=== PATIENT | male | born 1935 | race Caucasian/White ===

== ENCOUNTER → 2016-10-21 | Outpatient (CLI) | payer OTHER, MEDICARE | LOC: BMCIMAGING 10:47 | PROVIDERS: ATTEND Internal Medicine | DX: M25.552 Pain in left hip (principal) ==

== ENCOUNTER 2017-06-22 19:00 | Inpatient (IN) | payer MEDICARE, OTHER ==
--- NOTE | 2017-06-22 19:14 | EDPHY ---
H & P HPI/ROS: CHIEF COMPLAINT: Dizziness HISTORY OF PRESENT ILLNESS: This patient is an 82 y/o male with history of seizures arriving via EMS complaining of dizziness. This evening, he was lying on the couch watching TV while his was cooking dinner and noticed the TV table was off-kilter and attempted to stand to fix it. He lost his balance and fell back against the couch. His tried to help him up, but he was unable to stand, and she states it seemed both his legs were too weak to support him. The patient admits to this though he initially denied weakness. Tegretol was increased 6 months ago because of petite mal seizures. Tegretol dosing is 400 mg in the morning and 600 mg in the evening. The patient denies having similar symptoms in the past. He denies headache, weakness, vision difficulties, hearing changes, swallowing difficulties, chest pain, shortness of breath, nausea. Currently, he denies dizziness or weakness. He is a difficult historian, and has history of dementia. His states he seems more confused that usual. She denies history of stroke. Pt has remote history of IN s/p stent placement. No recent illness, cough, cold, or fever. HPI obtained partially from patient's at bedside as patient is a difficult historian. REVIEW OF SYSTEMS: A 10 point review of systems was performed and is negative with the exception of the elements mentioned in the history of present illness. Past Medical/Surgical History: Partial complex seizures (Carbamazepine) CAD Remote history of IN s/p stent placement Hyperlipidemia BPH Cholecystectomy Social History: . at bedside. Former smoker. Lives in [place]. Smoking Status: Former smoker Physical Exam: General Appearance: Alert, pleasant Head: Small hematoma to L periorbital area. Eyes: Horizontal nystagmus. Pupils equal and round, no conjunctival pallor or injection ENT, Mouth: Mucous membranes moist Neck: Normal inspection Respiratory: Lungs are clear to auscultation Cardiovascular: Regular rate and rhythm Gastrointestinal: Abdomen is soft and non-tender Neurological: A&O, nonfocal exam Skin: Abrasion L elbow. Warm and dry, no rash Extremities: Nontender, no pedal edema Psychiatric: Mood and affect normal Constitutional: Initial Vital Signs Temperature (C) 37.0 C 06/22/17 20:08 Heart Rate 84 06/22/17 20:08 Respiratory Rate 16 06/22/17 20:08 Blood Pressure 134/81 H 06/22/17 20:08 O2 Sat (%) 92 06/22/17 20:08 O2 Delivery Mode Room Air Allergies/Adverse Reactions: clopidogrel bisulfate [From Plavix] Allergy (Mild, Verified 06/22/17 20:07) Rash Home Medications: Medication Instructions Recorded Aspirin [Aspirin 81mg (*)] 81 mg PO DAILY 12/19/11 carBAMazepine [TEGretol (*)] 400 mg PO BID 12/19/11 Medical Decision Making - Diagnostics Imaging Results: Imaging Impressions Chest X-Ray 06/22/17 19:16 Impression: Chronic versus recurrent left lower lobe consolidation. Head CT 06/22/17 19:17 Impression: Stable cerebral atrophy. Nothing acute detected. Results called to Dr. Montoya at 8:03 PM General information for patients regarding this examination can be found at [email or web address]. If you have questions or comments about this report, please contact me at (hospital) or [phone] (cell). Imaging: Discussed imaging studies w/ call center analyst Radiologist ED Course/Re-evaluation: 19:08 Took EMS report at bedside. 82 y/o male presents following an episode of dizziness and weakness and resultant fall. Exam reveals horizontal nystagmus. Plan for EKG, chest x-ray, CT head, labs including CBC, chemistries, troponin, Carbamazepine levels. 20:[address] Dotson, radiologist. CT head negative for acute processes. I was notified at this time as well that the patient's Carbamazepine level is greater than 20. Tegretol toxicity explains this patient's symptoms. He has generalized weakness, some cognitive impairment and nystagmus on exam. EKG reveals sinus rhythm with a left bundle branch block, similar to prior EKG dated 08/21/2014. 20:[address] Card, hospitalist. He accepts admission for Tegretol toxicity. Differential Diagnosis: Altered mental status including but not limited to hypoglycemia, infectious process, electrolyte abnormality, head injury and intoxicants. - Data Points Laboratory Results: Laboratory Results 06/22/17 19:11 06/22/17 19:11 06/22/17 06/22/17 19:11 19:11 WBC 7.25 10^3/uL 10^3/uL (3.80-9.50) RBC 4.24 10^6/uL L 10^6/uL (4.40-6.38) Hgb 14.4 g/dL g/dL (13.7-17.5) Hct 40.4 % % (40.0-51.0) MCV 95.3 fL fL (81.5-99.8) MCH 34.0 pg pg (27.9-34.1) MCHC 35.6 g/dL g/dL (32.4-36.7) RDW 12.8 % % (11.5-15.2) Plt Count 259 10^3/uL 10^3/uL (150-400) MPV 8.9 fL fL (8.7-11.7) Neut % (Auto) 62.3 % % (39.3-74.2) Lymph % (Auto) 23.6 % % (15.0-45.0) Door % (Auto) 7.0 % % (4.5-13.0) Eos % (Auto) 5.5 % % (0.6-7.6) Baso % (Auto) 1.2 % % (0.3-1.7) Nucleat RBC Rel Count 0.0 % % (0.0-0.2) Absolute Neuts (auto) 4.51 10^3/uL 10^3/uL (1.70-6.50) Absolute Lymphs (auto) 1.71 10^3/uL 10^3/uL (1.00-3.00) Absolute Monos (auto) 0.51 10^3/uL 10^3/uL (0.30-0.80) Absolute Eos (auto) 0.40 10^3/uL 10^3/uL (0.03-0.40) Absolute Basos (auto) 0.09 10^3/uL 10^3/uL (0.02-0.10) Absolute Nucleated RBC 0.00 10^3/uL 10^3/uL (0-0.01) Immature Gran % 0.4 % % (0.0-1.1) Immature Gran # 0.03 10^3/uL 10^3/uL (0.00-0.10) Platelet Estimate Pending Sodium 141 mEq/L mEq/L (135-145) Potassium 3.6 mEq/L mEq/L (3.5-5.2) Chloride 107 mEq/L mEq/L (97-110) Carbon Dioxide 20 mEq/l L mEq/l (22-31) Anion Gap 14 mEq/L mEq/L (8-16) BUN 19 mg/dL mg/dL (7-23) Creatinine 1.0 mg/dL mg/dL (0.7-1.3) Estimated GFR > 60 Glucose 123 mg/dL H mg/dL (70-100) Calcium 8.5 mg/dL mg/dL (8.5-10.4) Troponin I < 0.012 ng/mL ng/mL (0.000-0.034) Carbamazepine > 20.0 ug/mL H* ug/mL (4.0-12.0) Departure - Departure Disposition: [facility] Inpatient Acute Clinical Impression: Tegretol toxicity Qualifiers: Encounter type: initial encounter Injury intent: accidental or unintentional Qualified Code(s): T42.1X1A - Poisoning by iminostilbenes, accidental ( unintentional), initial encounter Condition: Good Report Scribed for: Bri Montoya Report Scribed by: Teena Talbert Date of Report: 06/22/17 Time of Report: 19:41 Physician Review and Approval Statement: 06/22/17 19:41 Portions of this note were transcribed by a quality engineer medical device. I personally performed a history, physical exam, medical decision making, and confirmed accuracy of information the transcribed note.
[2017-06-22] MEDS ORDERED: MECLIZINE HCL 25 MG TAB PO ONE (19:17)
[2017-06-22 19:22] LABS: PLATELET COUNT 259 10^3/uL (150-400)
--- NOTE | 2017-06-22 19:48 | CPEKG ---
Heart Rate: 85 RR Interval: 706 P-R Interval: 264 QRSD Interval: 130 QT Interval: 396 QTC Interval: 471 P Troy: 78 QRS Troy: -21 T Wave Troy: 94 EKG Severity - ABNORMAL ECG - EKG Impression: SINUS RHYTHM EKG Impression: FIRST DEGREE AV BLOCK EKG Impression: LEFT BUNDLE BRANCH BLOCK Electronically Signed By: Guido Deng 23-Jun-2017 10:46:27
[2017-06-22] MEDS ORDERED: NS 500 ML IV ONE (20:27)
[2017-06-22] MEDS ORDERED: ACETAMINOPHEN 325 MG TAB PO PRN (23:27)
[2017-06-22] MEDS ORDERED: ONDANSETRON 4 MG/2 ML VIAL IVP PRN (23:27)
[2017-06-22] MEDS: NS 1,000 ML IV SCH (23:40)
--- NOTE | 2017-06-23 00:27 | PDGENHP ---
History and Physical - Chief Complaint confusion, weakness - History of Present Illness Source-patient is not able to provide a significant amount of history. He presented with confusion. is not at bedside during time of interview. EMR was reviewed. Case discussed with ED provider initial patient's RN. HPI - very pleasant 82-year-old gentleman with past medical history listed as some underlying dementia, seizure disorder (partial complex) on Tegretol, history CVA, history CAD with WI and stents, and HLD, BPH who presents to the emergency department today with the increasing confusion generalized weakness and some dizziness. Patient does have a history of partial complex seizures for which she has been treated with Tegretol reported 400 in the morning and 600 at nighttime. Patient's home medications were up titrated approximately 6 months ago. It is unknown if patient has had any recent seizures. Unknown if he has had any falls with LOC or increasing seizures however he does have some contusions to his adventism and arms and various stages of healing. At time of my interview, patient is reporting that he just feels tired. He otherwise does not know why he is in the hospital or that he is in a hospital. He does recall that he is in room 203 and the month but not the year. History Information - Allergies/Home Medication List Allergies/Adverse Reactions: clopidogrel bisulfate [From Plavix] Allergy (Mild, Verified 06/22/17 20:07) Rash Home Medications: Aspirin [Aspirin 81mg (*)] 81 mg PO DAILY 12/19/11 [Last Taken 06/22/17] carBAMazepine [TEGretol (*)] 400 mg PO BID 12/19/11 [Last Taken 06/22/17] I have personally reviewed and updated: family history, medical history, social history, surgical history - Past Medical History Additional medical history: Partial complex seizure disorder, dementia, CVA, WI with history of stents, HLD, BPH - Surgical History Additional surgical history: Cholecystectomy, cardiac cath with stenting - Family History Additional family history: Unable to obtain secondary to patient's confusion - Social History Smoking Status: Former smoker Additional social history: Patient is lives with his . Cor - unable to verify at this time will be full. Review of Systems Review of Systems: ROS: 10pt was reviewed & negative except for what was stated in HPI & below Physical Exam Physical Exam: Selected Entries 06/22/17 20:08 Blood Pressure Automatic Method Heart Rate 84 Respiratory 16 Rate O2 Sat (%) 92 Temperature (C) 37.0 C Blood Pressure 134/81 H Mean Arterial 98 Pressure (MAP) O2 Delivery Room Air Mode Temperature Oral Source Temp Pulse Resp BP Pulse Ox 36.8 C 79 16 153/88 H 91 L 06/22/17 23:44 06/22/17 23:44 06/22/17 23:44 06/22/17 23:44 06/22/17 23:44 Constitutional: no apparent distress, chronically ill appearing, cachectic Eyes: PERRL, anicteric sclera, EOMI, No scleral injection Ears, Nose, Mouth, Throat: hearing normal, no oral mucosal ulcers, poor dentition, dry mucous membranes Cardiovascular: regular rate and rhythym, no murmur, rub, or gallop, systolic murmur, No edema Peripheral Pulses: 1+: dorsalis-pedis (R), dorsalis-pedis (L) Respiratory: no respiratory distress, no rales or rhonchi, clear to auscultation , reduced air movement (Bibasilar) Gastrointestinal: normoactive bowel sounds, soft, non-tender abdomen, no palpable masses, No tenderness, No guarding Genitourinary: no bladder tenderness, No bravo in urethra Skin: abrasion (Left adventism bilateral forearms), other (Bruising to bilateral forearms and left adventism) Musculoskeletal: abnormal gait, generalized weakness, No joint tenderness Neurologic: weakness (Generalized), CN II-XII Intact, other, No AAOx3, No facial droop Psychiatric: not anxious, poor memory, other (Patient oriented to self, room number but not location, month but not year), No anxious, No depressed Lymph, Heme, Immunologic: other (Bruising to extremities and left adventism) Lab Data & Imaging Review 06/23/17 03:09 06/23/17 03:09 WBC 7.25 10^3/uL (3.80-9.50) 06/22/17 19:11 RBC 4.24 10^6/uL (4.40-6.38) L 06/22/17 19:11 Hgb 14.4 g/dL (13.7-17.5) 06/22/17 19:11 Hct 40.4 % (40.0-51.0) 06/22/17 19:11 MCV 95.3 fL (81.5-99.8) 06/22/17 19:11 MCH 34.0 pg (27.9-34.1) 06/22/17 19:11 MCHC 35.6 g/dL (32.4-36.7) 06/22/17 19:11 RDW 12.8 % (11.5-15.2) 06/22/17 19:11 Plt Count 259 10^3/uL (150-400) 06/22/17 19:11 MPV 8.9 fL (8.7-11.7) 06/22/17 19:11 Neut % (Auto) 62.3 % (39.3-74.2) 06/22/17:11 Lymph % (Auto) 23.6 % (15.0-45.0) 06/22/17:11 Ripley % (Auto) 7.0 % (4.5-13.0) 06/22/17:11 Eos % (Auto) 5.5 % (0.6-7.6) 06/22/17 19:11 Baso % (Auto) 1.2 % (0.3-1.7) 06/22/17 19:11 Nucleat RBC Rel Count 0.0 % (0.0-0.2) 06/22/17:11 Absolute Neuts (auto) 4.51 10^3/uL (1.70-6.50) 06/22/17 19:11 Absolute Lymphs (auto) 1.71 10^3/uL (1.00-3.00) 06/22/17 19:11 Absolute Monos (auto) 0.51 10^3/uL (0.30-0.80) 06/22/17 19:11 Absolute Eos (auto) 0.40 10^3/uL (0.03-0.40) 06/22/17 19:11 Absolute Basos (auto) 0.09 10^3/uL (0.02-0.10) 06/22/17 19:11 Absolute Nucleated RBC 0.00 10^3/uL (0-0.01) 06/22/17:11 Immature Gran % 0.4 % (0.0-1.1) 02/15/18 19:11 Immature Gran # 0.03 10^3/uL (0.00-0.10) 06/22/17 19:11 RBC/WBC/PLT Morphology NORMAL (NORMAL) 06/22/17 19:11 Platelet Estimate ADEQUATE (ADEQ) 06/22/17 19:11 Sodium 141 mEq/L (135-145) 06/22/17 19:11 Potassium 3.6 mEq/L (3.5-5.2) 06/22/17 19:11 Chloride 107 mEq/L (97-110) 06/22/17 19:11 Carbon Dioxide 20 mEq/l (22-31) L 06/22/17 19:11 Anion Gap 14 mEq/L (8-16) 06/22/17 19:11 BUN 19 mg/dL (7-23) 06/22/17 19:11 Creatinine 1.0 mg/dL (0.7-1.3) 06/22/17 19:11 Estimated GFR > 60 06/22/17 19:11 Glucose 123 mg/dL (70-100) H 06/22/17 19:11 Calcium 8.5 mg/dL (8.5-10.4) 06/22/17 19:11 Troponin I < 0.012 ng/mL (0.000-0.034) 06/22/17 19:11 Carbamazepine > 20.0 ug/mL (4.0-12.0) H* 06/22/17 19:11 Imaging Review: CT Head Without Contrast, 7:49 PM History: Dizziness. Technique: Noncontrast images through the head. Soft tissue and bone window evaluation is performed. Dose reduction techniques were utilized. Comparison: August 21, 2014 Findings: There is stable age-appropriate cerebral atrophy. There is no evidence for hemorrhage, mass lesion, acute infarction, intracranial edema, hydrocephalus or abnormal intracranial calcification. No subarachnoid, epidural or subdural blood is identified. There is no midline shift. The ambient cistern is patent. Bone window evaluation reveals normally aerated paranasal and mastoid sinuses. There is no evidence of skull fracture or pneumocephalus. The paranasal and mastoid sinuses and both middle ears are normally aerated. The patient has had bilateral scleral banding procedures. Impression: Stable cerebral atrophy. Nothing acute detected. Chest, AP and Lateral, 18:51 History: Dyspnea, altered mental status Comparison: August 21, 2014 Findings: Inspiratory phase is not as robust as it was previously. It is difficult to exclude chronic or recurrent left basilar infiltrate or atelectasis. Heart size and pulmonary vascularity are normal. There is no adenopathy or mass lesion. There is no pleural effusion or pneumothorax. Bones are unremarkable for age. Impression: Chronic versus recurrent left lower lobe consolidation. Visualized and Interpreted EKG results: Yes EKG additional interpertation: NSR 1st AV block, LBBB, QTc 471 Assessment & Plan Assessment: Tegretol toxicity (Acute) - patient will receive IV fluid hydration. His Tegretol will be held. Patient appears to be mentating slightly improved since his arrival to the floor per RN he is more interactive and answering questions appropriately. Patient's cognitive baseline is unknown. Will have to further evaluate once patient's is available at bedside. Acute metabolic encephalopathy - secondary to above. Continue IV fluid hydration. Again appears to be slightly improved even since arrival from the ED. History of dementia - supportive care redirection p.r.n. patient currently is not agitated Seizure disorder - holding Tegretol see above Anemia - patient without any evidence of active bleeding. Likely some anemia of chronic disease. Will monitor - CAD - patient currently only on aspirin. HLD - no home meds listed. BPH - will monitor patient's output closely PVRs p.r.n.. FEN - IV fluids as noted above. Electrolytes will be monitored and replaced if needed. Advance diet as tolerated. PPX - SCDs. Lovenox. COR - unable to verify patient's code status no advanced directive left with the patient. Will leave the patient has a full code at this time and clarify with patient's in the morning. Dispo - patient admitted inpatient status on PCU. Patient requires close monitoring given high levels of Tegretol and acute encephalopathy. Anticipate greater than 2 midnight stay.
[2017-06-23 04:16] LABS: PLATELET COUNT 202 10^3/uL (150-400)
--- NOTE | 2017-06-23 09:57 | PDMN ---
Medical Necessity Medical necessity: Pt meets IP criteria per MD; est los >2 mn for eval/tx of acute metabolic encephalopathy secondary to Tegretol toxicity; given high levels of Tegretol & acute encephalopathy, admit for close monitoring, supportive care, IVFs & med management; hx dementia, seizure disorder, anemia, CVA, CAD w/CT & stents; per H&P & order 06/22/17
--- NOTE | 2017-06-23 10:09 | ASMTCMCOM ---
CM Note CM Note Notes: Patient admitted for confusion and weakness and found to have Tegretol toxicity. He takes Tegretol for partial complex seizures, and his dose was recently up-titrated. His mentation is improving, but he is still confused and unsteady on his feet. Patient lives independently with his Ashleigh. We will order PT/OT to eval. Discharge needs TBD. Case Management will follow. Date Signed: 06/23/2017 10:08 AM Electronically Signed By:Farzaneh Tsang RN
[2017-06-23] MEDS: NS 1,000 ML IV SCH ×2 (11:54→21:39)
--- NOTE | 2017-06-23 12:27 | HOSPPROG ---
Hospitalist Progress Note Assessment/Plan: 82-year-old male admitted with confusion and found to have an elevated Tegretol level consistent with Tegretol overdose. Patient is new to me today -Tegretol overdose secondary to excessive therapeutic dosing. Approximately 6 months ago the patient's dose of Tegretol was increased from 400 mg twice daily to 400 in morning and 600 in the evening. In the last 48 hr is noted increased confusion and weakness without a clear history of dizziness and no history of syncope. Tegretol on admission was greater than 20. Post admission and this a.m. The reports he is improving. ECG shows 1st degree block and a left bundle branch block but the QTC interval is normal. Plan: With old tegretol and discuss dosing with his PCP for neurology Dr. Shane Gonzalez Continue to monitor for prolonged QT interval and ventricular dysrhythmia. -dementia: He is more confused with the Tegretol overdose but is nearing his baseline according to the . He and his live together in a house here in [place] and have function well. The at this time declines home assistance. -seizure disorder: Patient has a partial complex seizure disorder which did improve with the increased dose of Tegretol 6 months ago. Excess Tegretol can cause seizures and he has not had an increase in his seizure disorder recently. Plan: Discuss Tegretol dosing with Dr. Shane Gonzalez -CAD, HLP, BPH, chronic problems and stable and currently being treated. -disposition: This time the and patient declined home health services or sniff placement. We will plan on a return to home possibly with home health services. Date of disposition unknown Case was discussed with Dr. Giovany Saldivar on rounds in the PCU. Time: 45 min Subjective: Is alert oriented and interactive and more interactive according to the . No complaints. Objective: Vital Signs Temp Pulse Resp BP Pulse Ox 36.4 C 57 L 18 112/65 96 06/23/17 07:36 06/23/17 07:36 06/23/17 07:36 06/23/17 07:36 06/23/17 07:36 Laboratory Results 06/23/17 03:09 06/23/17 03:09 06/22/17 06/23/17 06/24/17 05:59 05:59 05:59 Intake Total 985 Output Total 250 Balance 735 - Time Spent With Patient Time Spent with Patient: greater than 35 minutes Time Spent with Patient: Greater than 35 minutes spent on this patients care, greater than 50% of time spent counseling, educating, and coordinating care regarding the above mentioned plan. - Pending Discharge Pending Discharge Within 24 Hours: No Pending Discharge Within 48 Hours: No - Physical Exam Constitutional: no apparent distress Eyes: PERRL Ears, Nose, Mouth, Throat: hard of hearing Cardiovascular: regular rate and rhythym, no murmur, rub, or gallop Respiratory: no respiratory distress, no rales or rhonchi, clear to auscultation Gastrointestinal: normoactive bowel sounds, soft, non-tender abdomen, no palpable masses Genitourinary: no bladder fullness Skin: warm, other (No excessive flushing or dryness) Musculoskeletal: full muscle strength Neurologic: CN II-XII Intact Psychiatric: interacting appropriately ICD10 Worksheet Patient Problems: Problems Problem Status Onset Tegretol toxicity Acute CAD - Coronary arteriosclerosis Active Seizure disorder Active
[2017-06-24 07:31] VITALS: BP 121/57; PULSE 49; RESP 15; TEMP 97.9; O2SAT 99
[2017-06-24] MEDS: NS 1,000 ML IV SCH (07:42)
--- NOTE | 2017-06-24 15:47 | ASDISCHSUM ---
Discharge Information Plan Status:Home with No Needs Medically Cleared to Leave:06/23/2017 Discharge Date:06/24/2017 03:06 PM CM D/C Disposition:Home, Routine, Self-Care ADT D/C Disposition:Home, Routine, Self-Care Projected Discharge Date:06/24/2017 03:06 PM Transportation at D/C:Family Discharge Delay Reason: Follow-Up Date:06/24/2017 03:06 PM Discharge Slot: Final Diagnosis: Placement Information Patient Contact Information Contact Name:CHIDI Relationship: Address:[address] City:[place] Alternate Phone: [facility]/Zip Code:[place] [address] Email: Financial Information Financial Class:Medicare Primary Plan Desc:MEDICARE INPATIENT Primary Plan Number:[id number] Secondary Plan Desc: Secondary Plan Number: Assessment Information [facility] CM Progress Note CM Note CM Note Notes: Patient admitted for confusion and weakness and found to have Tegretol toxicity. He takes Tegretol for partial complex seizures, and his dose was recently up-titrated. His mentation is improving, but he is still confused and unsteady on his feet. Patient lives independently with his Ashleigh. We will order PT/OT to [facility]. Discharge needs TBD. Case Management will follow. Date Signed: 06/23/2017 10:08 AM Electronically Signed By:Farzaneh Tsang RN Intervention Information
--- NOTE | 2017-06-24 15:48 | ASMTLACE ---
LACE Length of stay for Answers: 2 days current admission Acuity / Level of Answers: Yes Care: Did the patient have an inpatient admission? Comorbidities - select Answers: Cerebrovascular disease all that apply (CVA, TIA, aneurysms, vasc ular dementia) Dementia Previous myocardial infarction Other Notes: CAD, Partial complex seizures # of Emergency department Answers: 1-2 visits in the last 6 months Score: 12 Date Signed: 06/24/2017 03:48 PM Electronically Signed By:CHOCO King
--- NOTE | 2017-06-24 17:58 | GDS ---
[f rep st] DISCHARGE SUMMARY NEW AND ACUTE DIAGNOSES: 1. Tegretol overdose, accidental, secondary to an excessive therapeutic dosing. 2. Seizure disorder characterized as partial complex, without seizure activity during this hospitali zation. 3. Dementia, now at his baseline. 4. Acute encephalopathy secondary to the Tegretol overdose, resolved at the time of discharge. CHRONIC DIAGNOSES: Coronary artery disease, hyperlipidemia, benign prostatic hypertrophy, all stable during this hospitalization. CONSULTATIONS: None. PROCEDURES: Head CT showed stable cerebral atrophy with no acute findings. HOSPITAL COURSE: This is an 82-year-old gentleman with a known mild dementia who presented with acut e confusion. He was found to have an elevated Tegretol level greater than 20. The QT interval was m onitored on the cardiac unit and found that it was not prolonged, and he suffered no adverse affects. There was no seizure activity during the time that we stopped the Tegretol. His repeat Tegretol le tigre on 06/24 was less than 3. His mental status was judged to be at his baseline. Baseline was asse ssed both by Physical Therapy and by his who attends to his care. I discussed the matter with Dr. Gonzalez, his neurologist. The gentleman had been on Tegretol 400 m g in the morning and 600 mg in the evening. It is unknown as to why he became toxic. Following a di scussion with Dr. Gonzalez, we decided to discharge the gentleman on Tegretol 400 mg in morning and 500 mg in the evening. DISCHARGE MEDICATIONS: New medication is a change of dosage of his Tegretol to Tegretol 400 mg in e morning and 500 mg in the evening. Aspirin 81 mg a day will be continued. PLAN: The gentleman will follow up with his PCP, Dr. Tj Mcleod as needed, and he will see Dr. Shane Gonzalez within 2 weeks. TIME: This discharge required 50 minutes, greater than 50% to chemical dependency counselor and coordinate his care. /[id number]/MODL
== END 2017-06-24 15:06 | disposition home or self-care (01) | DRG 92 ==
LOC: EDUNIT# → F2W 22:23
PROVIDERS: ADMIT Internal Medicine; ATTEND Internal Medicine Pulmonary Disease
DX: G92 Toxic encephalopathy (principal); T42.1X5A Adverse effect of iminostilbenes, initial encounter; F03.90 Unspecified dementia, unspecified severity, without behavioral disturbance, psychotic disturbance, mood disturbance, and anxiety; G40.209 Localization-related (focal) (partial) symptomatic epilepsy and epileptic syndromes with complex partial seizures, not intractable, without status epilepticus; I25.10 Atherosclerotic heart disease of native coronary artery without angina pectoris; E78.5 Hyperlipidemia, unspecified; N40.0 Benign prostatic hyperplasia without lower urinary tract symptoms
CPT/HCPCS: 92523-GN; 92610-GN; 97161-GP; 97530-GP; G8978-GP-CI; G8979-GP-CH; G8996-GN-CH; G8997-GN-CH; G8998-GN-CH; G9168-GN-CL; G9169-GN-CL; G9170-GN-CL

== ENCOUNTER 2017-06-30 20:16 | Observation (INO) | payer OTHER ==
--- NOTE | 2017-06-30 20:26 | CPEKG ---
Heart Rate: 90 RR Interval: 667 P-R Interval: 192 QRSD Interval: 120 QT Interval: 372 QTC Interval: 455 P Daniel: 67 QRS Daniel: -23 T Wave Daniel: 97 EKG Severity - ABNORMAL ECG - EKG Impression: SINUS RHYTHM EKG Impression: NONSPECIFIC INTRAVENTRICULAR CONDUCTION DELAY EKG Impression: PROBABLE LVH WITH SECONDARY REPOL ABNRM EKG Impression: ANTERIOR Q WAVES, POSSIBLY DUE TO LVH Electronically Signed By: Clarice Newton 01-Jul-2017 07:32:11
--- NOTE | 2017-06-30 20:35 | EDPHY ---
H & P Time Seen by Provider: 06/30/17 20:23 HPI/ROS: CHIEF COMPLAINT: Altered mental status HISTORY OF PRESENT ILLNESS: Patient is an 82-year-old male who presents emergency department with altered mental status. Per the patient's she noticed he became confused around 3:00 p.m. He was making confusing statements. He attempted to walk around the kitchen table using the chairs as a walker. He was unable sit down for more than 2 min. He had increased agitation. His states that previously when he acted this way he had an underlying infection. Per EMS, patient was markedly confused when they arrive. He was not able to answer any questions appropriately. They feel his mental status had improved in route. He is able to answer some simple questions. His glucose was normal. Vital signs were normal. No focal deficits per their report. Patient denies any complaint. He states he feels good. Patient's is present. She confirms the story above. Patient's states he was here recently discharged on the . He had a fall prior to the previous admission. He has not fallen since his discharge. REVIEW OF SYSTEMS: My complete review of systems is negative except as mentioned in the HPI. Past Medical/Surgical History: Includes CVA, coronary artery disease, seizure disorder, dementia, hyperlipidemia, BPH Past surgical history: Cholecystectomy, cardiac stent Social history: Patient lives at home with his Smoking Status: Former smoker Physical Exam: Vitals noted. GENERAL: No acute distress, alert. HEENT: Patient has an old bruise around his left eye. Otherwise, eyes normal to inspection. normal pharynx, no signs of dehydration. NECK: No thyromegaly, no lymphadenopathy, supple. No spinal tenderness RESPIRATORY: Clear to auscultation bilaterally, no rales, rhonchi or wheezing. CVS: Regular rate and rhythm, no rubs, murmurs, or gallops. ABDOMEN: Soft, nontender, nondistended, no organomegaly. Benign BACK: Normal to inspection, no CVA tenderness. SKIN: Normal color, no rash, warm, dry. No pallor. EXTREMITIES: No pedal edema, no calf tenderness, no Homans sign or cords, no joint swelling. NEURO/PSYCH: Higher functions: Alert and Oriented x2. Normal speech. Normal mood and affect. Cranial nerves: Normal as tested. Cerebellar: Normal as tested. Good finger to nose, good [id number]. Peripheral exam: Normal motor exam. Normal sensation. Normal reflexes. Constitutional: Initial Vital Signs Temperature (C) 37.8 C 06/30/17 20:25 Heart Rate 86 06/30/17 20:25 Respiratory Rate 18 06/30/17 20:25 Blood Pressure 152/77 H 06/30/17 20:25 O2 Sat (%) 93 06/30/17 20:25 O2 Delivery Mode Room Air Allergies/Adverse Reactions: clopidogrel bisulfate [From Plavix] Allergy (Mild, Verified 06/22/17 20:07) Rash Home Medications: Medication Instructions Recorded Aspirin [Aspirin 81mg (*)] 81 mg PO DAILY 12/19/11 carBAMazepine [TEGretol (*)] 400 mg PO BID 12/19/11 carBAMazepine [Tegretol] 100 mg PO HS #30 tablet 06/24/17 Medical Decision Making - Diagnostics Imaging Results: Imaging Impressions Chest X-Ray 06/30/17 20:42 Impression: Possible right lower lobe infiltrate. If confirmation is important, then consider noncontrast chest CT. Head CT 06/30/17 20:49 Impression: Stable x2 weeks.. Results communicated to Dr. Dickey via text at 9:32 PM General information for patients regarding this examination can be found at [email or web address]. If you have questions or comments about this report, please contact me at (hospital) or [phone] (cell). ED Course/Re-evaluation: In the emergency department I met EMS on arrival. I took report from the paramedics. I also discussed case with the patient's . I reviewed the patient's previous medical record. Laboratory studies, head CT, blood cultures , urine, chest x-ray were ordered. It is noted the patient is on Coumadin. My initial NIHSS equals 0. The nurse performed NIHSS S and felt that he had a score of 1 for slight sensation change. I when re-evaluated the patient. He had no change in sensation on my repeat exam. Based on my findings, I do not feel the patient is a candidate for tPA. EKG: Sinus rhythm at 90. Left bundle branch block. ST depression V4 through V6. Compared this with a previous EKG from 06/22/[address] depression was present previously Patient white count 9. Hematocrit is normal. Platelets are normal. Patient's lactic acid is 1.3. INR is 1.2. Chemistry panel is notable for low CO2 of 20. Urine pending. Influenza pending. I rechecked the patient's vital signs. His blood pressure and heart rate were stable. He continues to have a temperature of 37.6 degrees. Patient remained confused. No focal deficits. I discussed the case with Dr. Weaver. He will admit the patient. Differential Diagnosis: My differential includes but is not limited to sepsis, bacteremia, ischemic CVA , hemorrhagic CVA, ACS, acute VA, pneumonia, urinary tract infection, skin infection, subarachnoid hemorrhage, subdural hematoma, epidural hematoma, electrolyte abnormality, sugar abnormality - Data Points Laboratory Results: Laboratory Results 06/30/17 20:28 06/30/17 20:28 06/30/17 06/30/17 06/30/17 21:20 21:08 20:59 WBC RBC Hgb Hct MCV MCH MCHC RDW Plt Count MPV Neut % (Auto) Lymph % (Auto) [place] % (Auto) Eos % (Auto) Baso % (Auto) Nucleat RBC Rel Count Absolute Neuts (auto) Absolute Lymphs (auto) Absolute Monos (auto) Absolute Eos (auto) Absolute Basos (auto) Absolute Nucleated RBC Immature Gran % Immature Gran # PT INR APTT VBG Lactic Acid 1.3 mmol/L mmol/L (0.7-2.1) Sodium Potassium Chloride Carbon Dioxide Anion Gap BUN Creatinine Estimated GFR Glucose Calcium Total Bilirubin Troponin I Urine Color YELLOW Urine Appearance CLEAR Urine pH 5.0 (5.0-7.5) Ur Specific [place] 1.019 (1.002-1.030) Urine Protein 1+ H (NEGATIVE) Urine Ketones TRACE H (NEGATIVE) Urine Blood 1+ H (NEGATIVE) Urine Nitrate NEGATIVE (NEGATIVE) Urine Bilirubin NEGATIVE (NEGATIVE) Urine Urobilinogen NEGATIVE EU EU (0.2-1.0) Ur Leukocyte Esterase NEGATIVE (NEGATIVE) Urine RBC 1-3 /hpf /hpf (0-3) Urine WBC 1-3 /hpf /hpf (0-3) Ur Epithelial Cells TRACE /lpf /lpf (NONE-1+) Urine Mucus TRACE /lpf /lpf (NONE-1+) Urine Glucose NEGATIVE (NEGATIVE) Nasal Influenza A PCR Pending Nasal Influenza B PCR Pending 06/30/17 06/30/17 06/30/17 20:28 20:28 20:28 WBC 9.38 10^3/uL 10^3/uL (3.80-9.50) RBC 3.85 10^6/uL L 10^6/uL (4.40-6.38) Hgb 12.8 g/dL L g/dL (13.7-17.5) Hct 37.5 % L % (40.0-51.0) MCV 97.4 fL fL (81.5-99.8) MCH 33.2 pg pg (27.9-34.1) MCHC 34.1 g/dL g/dL (32.4-36.7) RDW 12.8 % % (11.5-15.2) Plt Count 212 10^3/uL 10^3/uL (150-400) MPV 8.9 fL fL (8.7-11.7) Neut % (Auto) 79.1 % H % (39.3-74.2) Lymph % (Auto) 9.9 % L % (15.0-45.0) [place] % (Auto) 9.7 % % (4.5-13.0) Eos % (Auto) 0.3 % L % (0.6-7.6) Baso % (Auto) 0.4 % % (0.3-1.7) Nucleat RBC Rel Count 0.0 % % (0.0-0.2) Absolute Neuts (auto) 7.41 10^3/uL H 10^3/uL (1.70-6.50) Absolute Lymphs (auto) 0.93 10^3/uL L 10^3/uL (1.00-3.00) Absolute Monos (auto) 0.91 10^3/uL H 10^3/uL (0.30-0.80) Absolute Eos (auto) 0.03 10^3/uL 10^3/uL (0.03-0.40) Absolute Basos (auto) 0.04 10^3/uL 10^3/uL (0.02-0.10) Absolute Nucleated RBC 0.00 10^3/uL 10^3/uL (0-0.01) Immature Gran % 0.6 % % (0.0-1.1) Immature Gran # 0.06 10^3/uL 10^3/uL (0.00-0.10) PT 15.4 SEC H SEC (12.0-15.0) INR 1.20 H (0.83-1.16) APTT 32.0 SEC SEC (23.0-38.0) VBG Lactic Acid Sodium 138 mEq/L mEq/L (135-145) Potassium 3.8 mEq/L mEq/L (3.5-5.2) Chloride 105 mEq/L mEq/L (97-110) Carbon Dioxide 20 mEq/l L mEq/l (22-31) Anion Gap 13 mEq/L mEq/L (8-16) BUN 16 mg/dL mg/dL (7-23) Creatinine 0.9 mg/dL mg/dL (0.7-1.3) Estimated GFR > 60 Glucose 118 mg/dL H mg/dL (70-100) Calcium 8.0 mg/dL L mg/dL (8.5-10.4) Total Bilirubin 0.5 mg/dL mg/dL (0.1-1.4) Troponin I < 0.012 ng/mL ng/mL (0.000-0.034) Urine Color Urine Appearance Urine pH Ur Specific [place] Urine Protein Urine Ketones Urine Blood Urine Nitrate Urine Bilirubin Urine Urobilinogen Ur Leukocyte Esterase Urine RBC Urine WBC Ur Epithelial Cells Urine Mucus Urine Glucose Nasal Influenza A PCR Nasal Influenza B PCR Departure - Departure Disposition: [facility] Acute Clinical Impression: Altered mental status Qualifiers: Altered mental status type: unspecified Qualified Code(s): R41.82 - Altered mental status, unspecified Condition: Good Referrals: Patient,NotPresent [Unknown] - As per Instructions
[2017-06-30 20:51] LABS: PLATELET COUNT 212 10^3/uL (150-400)
[2017-06-30 20:59] LABS: INR 1.2 (0.83-1.16); PROTIME(PATIENT) 15.4 SEC (12.0-15.0)
[2017-06-30 21:28] VITALS: RESP 16
[2017-06-30] MEDS ORDERED: ONDANSETRON 4 MG/2 ML VIAL IVP PRN (22:24)
[2017-06-30] MEDS ORDERED: ACETAMINOPHEN 325 MG TAB PO PRN (22:24)
[2017-06-30] MEDS ORDERED: ONDANSETRON DISINTEGRATING 4 MG TAB PO PRN (22:24)
--- NOTE | 2017-06-30 23:25 | PDGENHP ---
History and Physical - Chief Complaint Confusion - History of Present Illness 82 yo M w/ dementia and seizure d/o presents with confusion. Patient was recently admitted for confusion, which was attributed to supratherapeutic Tegretol level. He was discharged on 06/24 to his 's care. Today the patient' s noted patient became confused around 3 PM. He was making confusing statements and acting oddly. Per EMS, he was clearly confused when they arrived. Per report his mental status improved en route. In the ED laboratory work-up was unremarkable. Patient denies all symptoms currently and is A&Ox2 and very appropriate on my examination. was not at bedside during my evaluation. History Information - Allergies/Home Medication List Allergies/Adverse Reactions: clopidogrel bisulfate [From Plavix] Allergy (Mild, Verified 06/22/17 20:07) Rash Home Medications: Aspirin [Aspirin 81mg (*)] 81 mg PO DAILY 12/19/11 [Last Taken 06/30/17] carBAMazepine [Tegretol] 400 mg PO DAILY 06/30/17 [Last Taken 06/30/17] carBAMazepine [Tegretol] 600 mg PO HS 06/30/17 [Last Taken 06/29/17] I have personally reviewed and updated: family history, medical history - Past Medical History Additional medical history: Partial complex seizure disorder, dementia, CVA, TN with history of stents, HLD, BPH - Surgical History Additional surgical history: Cholecystectomy, cardiac cath with stenting - Family History Additional family history: Unable to obtain secondary to patient's confusion - Social History Smoking Status: Former smoker Additional social history: Patient is lives with his . Cor - unable to verify at this time will be full. Review of Systems Review of Systems: ROS: 10pt was reviewed & negative except for what was stated in HPI & below Physical Exam Physical Exam: Temp Pulse Resp BP Pulse Ox 37.1 C 82 16 132/64 H 95 06/30/17 22:40 06/30/17 22:40 06/30/17 22:40 06/30/17 22:40 06/30/17 22:40 Constitutional: no apparent distress, not in pain Eyes: PERRL, EOMI Ears, Nose, Mouth, Throat: moist mucous membranes, no oral mucosal ulcers Cardiovascular: regular rate and rhythym, systolic murmur Respiratory: no respiratory distress, no rales or rhonchi Gastrointestinal: normoactive bowel sounds, soft, non-tender abdomen Skin: warm, normal color Musculoskeletal: full muscle strength, no muscle tenderness Neurologic: CN II-XII Intact, other (A&Ox2, NIHSS 0) Psychiatric: interacting appropriately, not anxious Lab Data & Imaging Review 06/30/17 20:06/30/17 20: WBC 9.38 10^3/uL (3.80-9.50) 06/30/17 20: RBC 3.85 10^6/uL (4.40-6.38) L 06/30/17 20: Hgb 12.8 g/dL (13.7-17.5) L 06/30/17: Hct 37.5 % (40.0-51.0) L 06/30/17: MCV 97.4 fL (81.5-99.8) 06/30/17 20: MCH 33.2 pg (27.9-34.1) 06/30/17: MCHC 34.1 g/dL (32.4-36.7) 06/30/17 20: RDW 12.8 % (11.5-15.2) 06/30/17: Plt Count 212 10^3/uL (150-400) 06/30/17: MPV 8.9 fL (8.7-11.7) 06/30/17: Neut % (Auto) 79.1 % (39.3-74.2) H 06/30/17: Lymph % (Auto) 9.9 % (15.0-45.0) L 06/30/17: [place] % (Auto) 9.7 % (4.5-13.0) 06/30/17: Eos % (Auto) 0.3 % (0.6-7.6) L 06/30/17: Baso % (Auto) 0.4 % (0.3-1.7) 06/30/17: Nucleat RBC Rel Count 0.0 % (0.0-0.2) 06/30/17: Absolute Neuts (auto) 7.41 10^3/uL (1.70-6.50) H 06/30/17 20:28 Absolute Lymphs (auto) 0.93 10^3/uL (1.00-3.00) L 06/30/17 20: Absolute Monos (auto) 0.91 10^3/uL (0.30-0.80) H 06/30/17 20: Absolute Eos (auto) 0.03 10^3/uL (0.03-0.40) 06/30/17 20: Absolute Basos (auto) 0.04 10^3/uL (0.02-0.10) 06/30/17 20: Absolute Nucleated RBC 0.00 10^3/uL (0-0.01) 06/30/17: Immature Gran % 0.6 % (0.0-1.1) 06/30/17: Immature Gran # 0.06 10^3/uL (0.00-0.10) 06/30/17 20: PT 15.4 SEC (12.0-15.0) H 06/30/17 20: INR 1.20 (0.83-1.16) H 06/30/17 20: APTT 32.0 SEC (23.0-38.0) 06/30/17 20: VBG Lactic Acid 1.3 mmol/L (0.7-2.1) 06/30/17 21:08 Sodium 138 mEq/L (135-145) 06/30/17 20: Potassium 3.8 mEq/L (3.5-5.2) 06/30/17 20: Chloride 105 mEq/L (97-110) 06/30/17 20: Carbon Dioxide 20 mEq/l (22-31) L 06/30/17 20: Anion Gap 13 mEq/L (8-16) 06/30/17 20: BUN 16 mg/dL (7-23) 06/30/17 20: Creatinine 0.9 mg/dL (0.7-1.3) 06/30/17 20: Estimated GFR > 60 06/30/17 20: Glucose 118 mg/dL (70-100) H 06/30/17 20: Calcium 8.0 mg/dL (8.5-10.4) L 06/30/17 20:28 Total Bilirubin 0.5 mg/dL (0.1-1.4) 06/30/17 20:28 Troponin I < 0.012 ng/mL (0.000-0.034) 06/30/17 20:28 Urine Color YELLOW 06/30/17 21:20 Urine Appearance CLEAR 06/30/17 21:20 Urine pH 5.0 (5.0-7.5) 06/30/17 21:20 Ur Specific [place] 1.019 (1.002-1.030) 06/30/17 21:20 Urine Protein 1+ (NEGATIVE) H 06/30/17 21:20 Urine Ketones TRACE (NEGATIVE) H 06/30/17 21:20 Urine Blood 1+ (NEGATIVE) H 06/30/17 21:20 Urine Nitrate NEGATIVE (NEGATIVE) 06/30/17 21:20 Urine Bilirubin NEGATIVE (NEGATIVE) 06/30/17 21:20 Urine Urobilinogen NEGATIVE EU (0.2-1.0) 06/30/17 21:20 Ur Leukocyte Esterase NEGATIVE (NEGATIVE) 06/30/17 21:20 Urine RBC 1-3 /hpf (0-3) 06/30/17 21:20 Urine WBC 1-3 /hpf (0-3) 06/30/17 21:20 Ur Epithelial Cells TRACE /lpf (NONE-1+) 06/30/17 21:20 Urine Mucus TRACE /lpf (NONE-1+) 06/30/17 21:20 Urine Glucose NEGATIVE (NEGATIVE) 06/30/17 21:20 Nasal Influenza A PCR NEGATIVE FOR FLU A (NEGATIVE) 06/30/17 20:59 Nasal Influenza B PCR NEGATIVE FOR FLU B (NEGATIVE) 06/30/17 20:59 Carbamazepine 16.1 ug/mL (4.0-12.0) H 06/30/17 21:08 Imaging Review: Imaging Impressions Chest X-Ray 06/30/17 20:42 Impression: Possible right lower lobe infiltrate. If confirmation is important, then consider noncontrast chest CT. Head CT 06/30/17 20:49 Impression: Stable x2 weeks.. Results communicated to Dr. Dickey via text at 9:32 PM General information for patients regarding this examination can be found at [email or web address]. If you have questions or comments about this report, please contact me at (hospital) or [phone] (cell). Visualized and Interpreted EKG results: Yes EKG Interpretation: Positive for: normal sinsus rhythm, other (ST depression lateral leads, stable from 06/22 comparison) Assessment & Plan Assessment: 82 yo M w/ hx of CAD, seizure d/o, and dementia presents with AMS. Plan: 1. Confusion - Per report patient exhibited transient period of confusion a few hours prior to admission. is not at bedside for confirmation currently but I suspect patient is near baseline now as he is A&Ox2, appropriate, and following commands. His work-up thus far has been unremarkable aside from Tegretol level of 16. He denies all symptoms of infection. He was admitted recently for similar symptoms and during that admission symptoms were attributed to elevated Tegretol level of 20. It is also possible this represents intermittent agitation(sundowning) in the setting of dementia. - Admit for observation - Consider decreasing Tegretol dose - PT/OT evaluations 2. Seizure d/o w/ elevated Tegretol level - Level of 16 on admission despite recent decrease in dose. Prior seizure described as partial complex seizures. He has exhibited no seizure activity while here. - Neurology consult placed to discuss dose change - Repeat Tegretol level in AM 3. Hx CAD - With prior history of TN's and stents. Currently only on ASA. ECG shows lateral ST depression but these are stable from prior ECG and patient denies any symptoms of chest pain. Diet - Regular Code - Full Ppx - LMWH Dispo - Admit under observation status
[2017-07-01 04:47] LABS: PLATELET COUNT 218 10^3/uL (150-400)
[2017-07-01 07:50] VITALS: BP 103/47
[2017-07-01] MEDS ORDERED: ASPIRIN 81 MG CHEWABLE TAB PO SCH (09:00)
[2017-07-01] MEDS ORDERED: ENOXAPARIN 40 MG/0.4 ML SYR SC SCH (09:00)
[2017-07-01] MEDS ORDERED: CEPACOL LOZENGE PO PRN (10:31)
[2017-07-01 11:52] VITALS: PULSE 68; TEMP 98.7; O2SAT 96
--- NOTE | 2017-07-01 12:09 | GCON ---
[f rep st] CONSULTATION REFERRING PHYSICIAN: Nicholas Morrissey MD CHIEF COMPLAINT: Tegretol toxicity. HISTORY OF PRESENT ILLNESS: The patient is a very pleasant 82-year-old gentleman who has underlying cognitive impairment and comorbid epilepsy. 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 In any case, it is not entirely clear what the cause of his cristóbal is. He is followed by my partner Dr. Gonzalez as an outpatient, along with LYRIC Guerrero, who also sees him intermittently. The patient is on Tegretol monotherapy. He has had now 2 hospitalizations for Tegretol toxicity. He in fact was hospitalized last weekend with a Tegretol level greater than 20. It was decreased at that time from 400 mg in the morning plus 600 mg in the evening to 400 mg in the morning plus 500 mg in the evening. He discharged home and was doing well with clearing of confusion. He has not had a seizure in greater than 1 year. He again became confused yesterday and was brought in and was found to have a level of 16.1. The patient and his do not think he took any extra doses. Looking at his Tegretol levels dating back to 2008, he ranges around 6 in general. He has had higher and lower levels in the past. His medication has been held since yesterday afternoon and his Tegretol level is now 13 and his confusion is completely resolved and he is back to baseline. REVIEW OF SYSTEMS: A 10-point review of systems done and only pertinent to HPI. Past medical history, social history, family history, home medications please see Dr. Morrissey's history and physical. PHYSICAL EXAM: VITAL SIGNS: 110/59, temperature 36.9, respirations 16, heart rate 83. GENERAL: The patient is awake, alert, very pleasant. No acute distress. Cranial nerve exam is normal 2 through 7. He has no evoked or spontaneous nystagmus. Sensory exam is normal to light touch. Motor exam reveals no focal weakness, he has no tremor on exam now. In summary, there is no physical exam findings of persistent Tegretol toxicity currently and no other focal findings. IMPRESSION AND PLAN: 1. Cryptogenic seizure disorder. 2. Tegretol toxicity. The patient's drug level this morning is 13 and his symptoms of high Tegretol have completely resolved. He has not had a seizure greater than 1 year. He is on indefinite driving restrictions and seizure precautions. The patient and his are agreeable. He will discharge home later today. I have asked his to give him 1 tablet (200 mg) this evening, and then resume a new lower, baseline dose of 400 mg b.i.d. starting tomorrow. He will then call our office on Monday to make a close followup with either Dr. Gonzalez or Mr. Solis to continue monitoring this patient. They can consider switching him to an alternative monotherapy, such as Keppra. Fifty total minutes on the floor, reviewing his outpatient and inpatient records, along with coordination of care and counseling the patient. We will sign off and follow up as needed. Please do not hesitate to call with any questions or changes in neurologic status with this very pleasant patient. Thank you for the consultation. /[id number]/MODL MTDD
--- NOTE | 2017-07-01 14:24 | GDS ---
[f rep st] DISCHARGE SUMMARY DISCHARGE DIAGNOSES: 1. Altered mental status. 2. Tegretol toxicity. CONSULTATIONS: Dr. Machado of Neurology. STUDIES AND PROCEDURES DONE: CT of the head. PHYSICAL EXAM: GENERAL: The patient is alert. VITAL SIGNS: Afebrile at 37.1, pulse is 68, respira tory rate 16, blood pressure is 103/47, saturating 96% on room air. I have seen and evaluated the niru humphrey on the day of discharge. HOSPITAL COURSE: The patient is an 82-year-old male who presented to the emergency room with complai nts of confusion and weakness. He was admitted and evaluated, diagnosed with Tegretol toxicity, as w ell as altered mental status. He did receive a consultation from Dr. Machado of Neurology. His symptoms are significantly improved. I have adjusted his Tegretol dose, and he will follow up in the outpati ent setting. The denies any need for home care. His Tegretol dose has been adjusted to 400 mg p.o. b.i.d. Followup will be with Dr. Shane Gonzalez of Neurology. Reviewed the patient's dispositi on with Dr. Machado. He is in agreement with the discharge plan. /[id number]/MODL
--- NOTE | 2017-07-01 15:02 | ASDISCHSUM ---
Discharge Information Plan Status:Home with No Needs Medically Cleared to Leave:06/30/2017 Discharge Date:07/01/2017 01:15 PM CM D/C Disposition:Home, Routine, Self-Care ADT D/C Disposition:Home, Routine, Self-Care Projected Discharge Date:07/01/2017 01:15 PM Transportation at D/C:Family Discharge Delay Reason: Follow-Up Date:07/01/2017 01:15 PM Discharge Slot:2 - 12:01 pm - 18:00 pm Final Diagnosis:AMS/confusion, dementia, seizure, hx of CAD Placement Information Patient Contact Information Contact Name:CHIDI Relationship: Address:[address] City:[place] Alternate Phone: State/Zip Code:[place] [address] Email: Financial Information Financial Class:Medicare Primary Plan Desc:MEDICARE OUTPATIENT Primary Plan Number:[id number] Secondary Plan Desc: Secondary Plan Number: Assessment Information [facility] CM Progress Note CM Note CM Note Notes: Pt admitted for confusion/altered mental status secondary to decreased Tegretol levels. Pt previously here for similar complaints. Hx includes dementia, seizures and CAD. Pt lives w/ his independently. Spoke w/ Naila Yi NP and DAREN Talavera. Met w/ pt and pt's to discuss potential needs. Pt and agree they will be ok and do not have any needs. IM signed. Pt to follow up as directed. CM avail for any further issues or concerns. Discharge Plan: Home independently Date Signed: 07/01/2017 03:00 PM Electronically Signed By:Danay Hill RN Intervention Information Intervention Type:*IM-Signed Date of Service:07/01/2017 02:55 PM Patient Type:Observation Staff Member:DAREN Hill, Danay Hours: Discipline: Severity: Comment:
--- NOTE | 2017-07-01 15:03 | ASMTLACE ---
LACE Length of stay for Answers: 1 day current admission Acuity / Level of Answers: No Care: Did the patient have an inpatient admission? Comorbidities - select Answers: Cerebrovascular disease all that apply (CVA, TIA, aneurysms, vasc ular dementia) Coronary Atery Disease Other Notes: Hx of seizures # of Emergency department Answers: 1-2 visits in the last 6 months Score: 6 Date Signed: 07/01/2017 03:03 PM Electronically Signed By:Danay Hill RN
== END 2017-07-01 13:15 | disposition home or self-care (01) ==
LOC: EDUNIT# → F3E 22:33
PROVIDERS: ADMIT Internal Medicine; ATTEND Hospitalist
DX: R41.82 Altered mental status, unspecified (principal); T42.1X5A Adverse effect of iminostilbenes, initial encounter; I25.10 Atherosclerotic heart disease of native coronary artery without angina pectoris; F03.90 Unspecified dementia, unspecified severity, without behavioral disturbance, psychotic disturbance, mood disturbance, and anxiety; G40.309 Generalized idiopathic epilepsy and epileptic syndromes, not intractable, without status epilepticus; E78.5 Hyperlipidemia, unspecified; N40.0 Benign prostatic hyperplasia without lower urinary tract symptoms; I44.7 Left bundle-branch block, unspecified; R29.701 NIHSS score 1; Z87.891 Personal history of nicotine dependence; Z86.73 Personal history of transient ischemic attack (TIA), and cerebral infarction without residual deficits; Z95.5 Presence of coronary angioplasty implant and graft
CPT/HCPCS: 70450; 71046; 93005; 99285; G0378; J1650

== ENCOUNTER 2018-08-19 11:32 | Emergency (ER) | payer OTHER ==
--- NOTE | 2018-08-19 11:51 | EDPHY ---
H & P Stated Complaint: R hip/leg pain Time Seen by Provider: 08/19/18 11:48 HPI/ROS: HPI: This is an 83-year-old male who presents with Chief Complaint: Right side hip and leg pain Location: Right lateral thigh, right lower back Quality: Pain Duration: Starting this morning Signs and Symptoms: No bleeding, no radiation, no numbness, no weakness, no tingling, no incontinence, no decreased range of motion, no swelling, + pain, no fever Timing: Acute, constant Severity: Mild Context: Patient reports that he woke up this morning with tenderness on his right lateral thigh that worsens with palpation. He does not remember injuring himself. He lives a pretty sedentary lifestyle. Ambulates on his own. Able to ambulate without any difficulty. He also noticed upon further questioning that he has some soreness described as achiness that is nonradiating in nature and is right lower back. The discomfort is nonradiating in nature and mild in intensity. at bedside reports that he is behaving normally and has mild memory deficits. Takes aspirin daily. Urinating without any difficulty and urinated prior to arrival. No history of hematuria and denies history of kidney stones. No change in bowel or bladder habits. Modifying Factors: Did not take any [id number] medications Comment: ROS: A comprehensive 10 system review of systems is otherwise negative aside from elements mentioned in the history of present illness. MEDICAL/SURGICAL/SOCIAL HISTORY: Medical history: coronary artery disease. Prostatic lesion, sz, NM; dementia Surgical history: Cholecystectomy, cardiac stent x1 20 years ago Social history: Retired, , lives with his . CONSTITUTIONAL: Elderly, talkative, nontoxic-appearing white male, at bedside, awake and alert, no obvious distress HEENT: Atraumatic and normocephalic. Wears glasses. NECK: supple, no midline tenderness, flexion 45 degrees, extension 45 degrees, right and left lateral flexion 45 degrees. No meningismus. Cardiovascular: Normal S1/S2, regular rate, regular rhythm, without murmur rub or gallop. PULMONARY/CHEST: Symmetrical and nontender. no crepitus. Clear to auscultation bilaterally. Good air movement. No accessory muscle usage. ABDOMEN: Soft, nondistended, nontender, no ecchymosis. PELVIC: no pain with rocking; bilateral hips flexion 125 degrees, extension 30 degrees, with no pain internal rotation and no pain external rotation. BACK: Mild reproducible lower lumbar paraspinous muscle tenderness; No midline tenderness, no paraspinous spasm, deep tendon reflexes 2/2, no pain with straight leg raise, No foot drop. Achilles reflexes are equal bilaterally. Good range of motion of flexion, extension, bilateral rotation. EXTREMITIES: 2/2 pulses, strength 5/5, right HIP: Flexion to 125, extension to 115, hyper extension to 15, abduction to 45. Pain with internal rotation and external rotation. No tenderness over greater trochanter. Right lateral thigh shows a varicose vein with mild bruising around the area and reproducible tenderness. No fluctuance, warmth, discharge. No palpable cords. Right leg is the same size as the left leg. Negative Homans sign. DIP/PIP/MCP flexion/ extension intact with good light touch sensation. no deformities, no clubbing, no cyanosis or edema. NEUROLOGICAL: no focal neuro deficits. GCS 15. Light touch sensation intact. SKIN: Warm and dry, no erythema. no rash. Good capillary refill. Source: Patient, Family Exam Limitations: Physical impairment (dementia) - Personal History Current Tetanus/Diphtheria Vaccine: Yes - Medical/Surgical History Hx Asthma: No Hx Chronic Respiratory Disease: No Hx Diabetes: No Hx Cardiac Disease: Yes Hx Renal Disease: No Hx Cirrhosis: No Hx Alcoholism: No Hx HIV/AIDS: No Hx Splenectomy or Spleen Trauma: No Other PMH: Cholecystectomy, coronary disease one stent 20 years ago. Prostatic lesion, sz, NM; dementia - Social History Smoking Status: Never smoked Constitutional: Initial Vital Signs Temperature (C) 36.8 C 08/19/18 11:35 Heart Rate 62 08/19/18 11:35 Respiratory Rate 18 08/19/18 11:35 Blood Pressure 141/85 H 08/19/18 11:35 O2 Sat (%) 97 08/19/18 11:35 O2 Delivery Mode Room Air Allergies/Adverse Reactions: clopidogrel bisulfate [From Plavix] Allergy (Mild, Verified 08/19/18 11:38) Rash Home Medications: Medication Instructions Recorded Aspirin [Aspirin 81mg (*)] 81 mg PO DAILY 12/19/11 Acetaminophen [Tylenol 325mg (*)] 650 mg PO Q4HRS PRN tab 07/01/17 Benzocaine/Menthol 15/4 [Cepacol 1 ea PO PRN PRN lozenge 07/01/17 Lozenge] carBAMazepine [Tegretol] 400 mg PO BID #30 tab 07/01/17 Lidocaine [Lidoderm] 1 each TP DAILY PRN #6 adh..patch 08/19/18 Medical Decision Making - Diagnostics Imaging Results: Imaging Impressions Extremity Venous Study 08/19/18 11:51 Impression: Negative. No deep venous thrombosis. Findings discussed with Emergency Department physician aquatics assistant department head, Pily Pratt at 08/19/2018 12:37. Lumbar Spine X-Ray 08/19/18 11:52 Impression: 1. Dextrorotary curvature of the thoracolumbar spine with associated multilevel degenerative disk disease. 2. No acute compression fracture. ED Course/Re-evaluation: Vital signs reviewed and stable upon arrival. Right lower extremity ultrasound and lumbar sacral x-rays ordered No neurological deficits to warrant emergent MRI 1235: Called by Dr. Bautista who advised right lower extremity ultrasound shows no signs of DVT, no abscess, no superficial thrombophlebitis Lumbosacral x-ray my read shows thoracolumbar scoliosis with moderate degenerative disc disease and stenosis Declines any stronger pain medications than Tylenol or ibuprofen. He is agreeable to try Lidoderm patches. Patient is ambulatory at discharge. Referral to Neurosurgery but doubt candidate for any advanced intervention given advanced age and dementia. No signs of neurovascular compromise/tenting of skin/compartment syndrome/ extremities and joints examined above and below area of concern and are neurovascularly intact/cellulitis/cauda equina syndrome/saddle anesthesia. This patient was seen under the supervision of my secondary supervising physician. I evaluated care for this patient with attending. Differential Diagnosis: Back pain including but not limited to muscular pain, herniated disc, spine fracture, intra-abdominal causes and urinary tract infection. Leg swelling including but not limited to hypoalbuminemia, congestive heart failure, cor pulmonale, chronic venous stasis and DVT. Departure - Departure Disposition: Home, Routine, Self-Care Clinical Impression: Lumbar degenerative disc disease, Lumbar stenosis without neurogenic claudication Scoliosis deformity of spine Qualifiers: Scoliosis type: unspecified scoliosis Spinal region: lumbosacral Qualified Code (s): M41.9 - Scoliosis, unspecified Condition: Good Instructions: Lumbar Spinal Stenosis (ED), Degenerative Disc Disease (ED) Additional Instructions: Take Tylenol 650 mg every 4 hours and/or Ibuprofen 600 mg every 8 hours with food as needed for pain. Apply Lidoderm patches every 12 hr as needed for pain. Follow-up with primary care provider in the next 5-7 days to discuss need for outpatient MRI lumbar spine. Follow-up with Neurosurgery to discuss intervention options of low back pain if symptoms persist. Return to the ER immediately if you have new or worsening back pain, fevers/ chills, flu like symptoms, incontinence or inability to urinate or defecate, weakness, paralysis, or any other symptom that concerns you Referrals: Tj Mcleod MD [Primary Care Provider] - As per Instructions Mars Alcantar MD [Medical Doctor] - As per Instructions Prescriptions: Lidocaine [Lidoderm] 1 each TP DAILY PRN #6 adh..patch PRN Reason: Pain, Moderate
[2018-08-19 13:19] VITALS: BP 136/77
== END 2018-08-19 13:18 | disposition home or self-care (01) ==
DX: M51.36 Other intervertebral disc degeneration, lumbar region (principal); M48.061 Spinal stenosis, lumbar region without neurogenic claudication; M43.8X5 Other specified deforming dorsopathies, thoracolumbar region; M79.651 Pain in right thigh; I25.10 Atherosclerotic heart disease of native coronary artery without angina pectoris; Z90.49 Acquired absence of other specified parts of digestive tract; Z95.5 Presence of coronary angioplasty implant and graft